=== PATIENT | female | born 1970 | race Caucasian/White ===

== ENCOUNTER 2018-11-20 21:33 | Emergency (ER) | payer SELFPAY ==
[~2018-11-20] VITALS: Ht 180.3 cm; Wt 106.9 kg
[2018-11-20] MEDS ORDERED: SODIUM CHLORIDE 0.9% 1,000ML IVBOLUS ONE (23:00)
[2018-11-20] MEDS ORDERED: ONDANSETRON 2MG/ML, 2ML IVPush ONE (23:00)
[2018-11-20] MEDS ORDERED: KETOROLAC 30 MG/1 ML IVPush ONE (23:00)
[2018-11-20] MEDS ORDERED: PROCHLORPERAZINE 5 MG/ML, 2ML IVPush ONE (23:00)
[2018-11-20] MEDS ORDERED: DIPHENHYDRAMINE 50 MG/ML, 1ML IVPush ONE (23:00)
[2018-11-20 23:09] LABS: BASOPHILS # (AUTO) 0.06 x10^3/uL (0-0.1); BASOPHILS % (AUTO) 1 % (0-1); EOSINOPHILS # (AUTO) 0.12 x10^3/uL (0-0.4); EOSINOPHILS % (AUTO) 1 % (1-7); LYMPHOCYTES # (AUTO) 1.44 x10^3/uL (1-3.4); LYMPHOCYTES % (AUTO) 15 % (22-44); MD NO; MEAN CORPUSCULAR HEMOGLOBIN 29.8 pg (27.0-34.8); MEAN CORPUSCULAR HGB CONC 33.8 g/dL (32.4-35.8); MEAN CORPUSCULAR VOLUME 88.2 fL (80-100); MEAN PLATELET VOLUME 8.2 fL (7.4-10.4); MONOCYTES % (AUTO) 4 % (2-9); NEUTROPHILS # (AUTO) 7.89 x10^3/uL (1.8-6.8); NEUTROPHILS % (AUTO) 80 % (42-75); PLATELET COUNT 367 x10^3/uL (130-400); RED BLOOD COUNT 4.66 x10^6/uL (3.82-5.3); RED CELL DISTRIBUTION WIDTH 12.6 % (9.6-15.2)
[2018-11-20] MEDS ORDERED: KETOROLAC 30 MG/1 ML ONE (23:16)
[2018-11-20] MEDS ORDERED: PROCHLORPERAZINE 5 MG/ML, 2ML ONE ×2 (23:16→23:44)
[2018-11-20] MEDS ORDERED: DIPHENHYDRAMINE 50 MG/ML, 1ML ONE (23:16)
[2018-11-20] MEDS ORDERED: ONDANSETRON 2MG/ML, 2ML ONE (23:16)
[2018-11-20 23:20] LABS: ALBUMIN 3.6 g/dL (3.4-5.0); ANION GAP 7 mmol/L (5-15); CALCIUM 8.1 mg/dL (8.5-10.1); CHLORIDE 105 mmol/L (98-107); CREATININE 0.72 mg/dL (0.55-1.02)
--- NOTE | 2018-11-20 23:35 | NUR ---
unable to place iv x2. pt refused FURTHER ATTEMPTS. ERP TO CHANGE MEDS TO INJECTION AND PILL FORM.
[2018-11-20] MEDS ORDERED: DIPHENHYDRAMINE 25 MG CAPSULE ONE (23:42)
[2018-11-20] MEDS ORDERED: PROCHLORPERAZINE 10MG TABLET ONE (23:42)
--- NOTE | 2018-11-20 23:51 | NUR ---
PT REFUSED MEDS. STATED SHE IS FINE, JUST WANTS WATER. PT GIVEN CUP OF WATER. FAMILY AT BEDSIDE.
[2018-11-21] MEDS ORDERED: PROCHLORPERAZINE 5 MG/ML, 2ML IM ONE
[2018-11-21] MEDS ORDERED: DIPHENHYDRAMINE 25 MG CAPSULE PO ONE
[2018-11-21] MEDS ORDERED: KETOROLAC 30 MG/1 ML IM ONE
[2018-11-21 00:33] VITALS: BP 144/91
== END 2018-11-21 00:34 | disposition home or self-care (01) ==
LOC: ED 23:29
DX: R51 Headache (principal); R53.1 Weakness; E86.0 Dehydration
CPT/HCPCS: 36415; 80048; 82040; 85025; 93005; 99283; 99284